=== PATIENT | female | born 1950 | race Caucasian/White ===

== ENCOUNTER 2017-08-03 05:51 | Inpatient (IN) | payer MEDICARE ==
[~2017-08-03] VITALS: Ht 157.5 cm; Wt 50.8 kg
--- NOTE | 2017-08-03 06:06 | NUR ---
Report given to Genesis ACEVEDO
[2017-08-03] MEDS ORDERED: AMLO10TA2 PO (06:13)
[2017-08-03] MEDS ORDERED: BUTA1CAP47 PO (06:13)
[2017-08-03] MEDS ORDERED: METO50TA3 PO (06:13)
[2017-08-03] MEDS ORDERED: PANT40TA4 PO (06:13)
[2017-08-03] MEDS ORDERED: GABA600T2 PO (06:13)
[2017-08-03] MEDS ORDERED: ALBU18HF2 IH (06:13)
[2017-08-03] MEDS ORDERED: IBUP-1953 PO (06:13)
[2017-08-03] MEDS ORDERED: LOSA100T15 PO (06:13)
--- NOTE | 2017-08-03 06:15 | NUR ---
[place] [facility] [place]
--- NOTE | 2017-08-03 06:15 | NUR ---
Pt arrived from ER tearful, crying, labile mood stating " I just don't want to be here" Pt appears disheveled and unkept, arms have red dots and is itching on arms. Pt can not verbalize where she is and what had happened to her. Pt appears to have Vitiligo on the forearms. will endorse to the on coming nurse.
[2017-08-03] MEDS ORDERED: TEMAZEPAM 7.5 MG CAPSULE PO PRN (06:45)
[2017-08-03] MEDS ORDERED: MAGNESIUM HYDROXIDE 30 ML LIQUID UDC PO PRN (06:45)
[2017-08-03] MEDS ORDERED: MAG HYDROX/AL HYDROX/SIMETH 30 ML LIQUID UDC PO PRN (06:45)
[2017-08-03 07:30] VITALS: BP 136/79
--- NOTE | 2017-08-03 10:03 | NUR ---
receivrd patient asleep arousable to verbal and tactile stimulation " [id number] am i said she stated whats good about it patient asleep and arousable to tactile and verbal stimuli, pt refused to be interviewed at thkis time whats good about this morning affect continue to monitor 4 dts or any other psychptic features '
--- NOTE | 2017-08-03 10:13 | NUR ---
will attempt again
[2017-08-03] MEDS: LORAZEPAM 1 MG TABLET PO PRN (11:27)
--- NOTE | 2017-08-03 11:45 | NUR ---
ADMISSION NOTE RECEIVED PATIIENT FROM NOC SHIFT WHOM SAID PT JUST ADMITTED , PATIENT A/O TIMES TWO REFUSING TOO ANSWER QUESTIONS FOR ADMISSIOIN PROCESS. PATIENT ISOLATIVE IN ROOM SLEEPING OFF AND ON WITH NOMRESPIRATORY DISTRESS, NO SELF DISCLOUSURE TO THIS STAFF. PATIENT BEGAN CRYING UN STOPPABLE FOR WHAT EVER REASON WITH NO SELF DISCLOUSURE , ATIVAN 1MG GIVEN WITH LITTLE EFFECT C CONTINUE TO MONITOR FOR SAFETY
[2017-08-03] MEDS ORDERED: HALOPERIDOL LACTATE 5 MG/1 ML VIAL IM ONE (13:45)
[2017-08-03] MEDS ORDERED: LORAZEPAM 2 MG/1 ML VIAL IM ONE (14:00)
--- NOTE | 2017-08-03 14:11 | NUR ---
PATIENT HAS BEEN THROWING FOOD TRAY AND TURNING OVER DESK AT BED SIDE IN A RAGE OF UN EXOLAINED ANGER STATING SHE HATES THIS PLACE U CANT GET OUT SCRATCHING HER ARMS AND CURSING AT STAFF WILL CONTINUE TO MONITOR PATIENTS BEHAVIOR AFTER INJECTIONS.
[2017-08-03] MEDS ORDERED: ALBUTEROL SULFATE 8 GM HFA.AER.AD IH PRN (18:15)
[2017-08-03] MEDS: METOPROLOL TARTRATE 50 MG TABLET PO SCH (18:15)
[2017-08-03] MEDS ORDERED: ALBUTEROL SULFATE 2.5 MG/3 ML NEBU NEB PRN (20:00)
--- NOTE | 2017-08-03 20:00 | NUR ---
Pt observed resting with no distress, breathing equal WNL. Pt was offered night meds and Pt becomes irritable, guarded, withdrawn, and screams " NO! I don't want it!" Pt offered at a later time. Pt continues to refuse medication without reason. Pt denies SI at this time.
[2017-08-03 21:00] VITALS: BP 129/77
[2017-08-03] MEDS: TRAZODONE 50 MG TABLET PO SCH (21:00)
[2017-08-03] MEDS: risperiDONE 1 MG TABLET PO SCH (21:00)
[2017-08-04 07:30] VITALS: BP 153/83
[2017-08-04 07:42] LABS: BASOPHILS % (AUTO) 0.3 % (0.0-2.0); EOSINOPHILS # (AUTO) 0.2 K/uL (0.0-0.7); EOSINOPHILS % (AUTO) 3.5 % (0.0-7.0); HEMATOCRIT 39.6 % (31.2-41.9); HEMOGLOBIN 13.9 g/dL (10.9-14.3); LYMPHOCYTES # (AUTO) 1.3 K/uL (20.0-40.0); LYMPHOCYTES % (AUTO) 20.7 % (20.5-51.5); MEAN CORPUSCULAR HEMOGLOBIN 30.9 uug (24.7-32.8); MEAN CORPUSCULAR HGB CONC 35 g/dL (32.3-35.6); MONOCYTES # (AUTO) 0.4 K/uL (2.0-10.0); MONOCYTES % (AUTO) 6.6 % (0.0-11.0); NEUTROPHILS # (AUTO) 4.3 K/uL (1.8-8.9); NEUTROPHILS % (AUTO) 68.9 % (38.5-71.5); PLATELET COUNT (AUTO) 336 K/uL (179-408); RED BLOOD CELL COUNT(AUTO) 4.49 MIL/uL (3.63-4.92); WHITE BLOOD COUNT (AUTO) 6.2 K/uL (3.8-11.8)
[2017-08-04 07:56] LABS: THYROID STIMULATING HORMONE 5.401 mIU/mL (0.358-3.740)
[2017-08-04 08:13] LABS: BILIRUBIN,TOTAL 0.4 mg/dL (0.2-1.0); CREATININE 0.8 mg/dL (0.6-1.3); MAGNESIUM 2.2 mg/dL (1.8-2.4); PHOSPHOROUS 3.5 mg/dL (2.5-4.9); POTASSIUM 3.7 mmol/L (3.5-5.1); TOTAL PROTEIN, SERUM 7.9 g/dL (6.4-8.2)
[2017-08-04] MEDS: PANTOPRAZOLE SODIUM 40 MG TABLET.DR PO SCH (09:00)
[2017-08-04] MEDS ORDERED: PANTOPRAZOLE SODIUM 40 MG TABLET.DR PO SCH (09:00)
[2017-08-04] MEDS ORDERED: Medication Not On Formulary EA (Losartan Potassium 100 MG) PO SCH (09:00)
[2017-08-04] MEDS: ACETAMINOPHEN 325 MG TABLET PO PRN (09:01)
[2017-08-04] MEDS: AMLODIPINE 10 MG TABLET PO SCH (09:01)
[2017-08-04] MEDS: LOSARTAN POTASSIUM 50 MG TABLET PO SCH (09:02)
[2017-08-04] MEDS: risperiDONE 1 MG TABLET PO SCH ×2 (09:03→20:18)
[2017-08-04] MEDS: LORAZEPAM 1 MG TABLET PO PRN (09:03)
[2017-08-04] MEDS: SERTRALINE HCL 100 MG TABLET PO SCH (09:03)
[2017-08-04] MEDS: METOPROLOL TARTRATE 50 MG TABLET PO SCH ×2 (09:04→18:16)
--- NOTE | 2017-08-04 13:26 | NUR ---
Initial DC Plan: Patient is currently homeless and has requested assistance finding placement. SW will contact facilities and try to find patient placement. SW will follow up with MD and patient to discuss appropriate discharge plans. SW will form a safe and proper discharge plan.
[2017-08-04 15:00] VITALS: BP 128/75
--- NOTE | 2017-08-04 18:48 | NUR ---
PATIENTN WAS INCONTINENT OF LARGE SOT PASTY STOOL BROWN IN COLOR , LIKE DIARRHEA MESSED WHOLE BED UP ,PUT PT IN SHOWER AND COMPLETE BED CHANGE DONE, PT FELT BETTER AFTER THAT AND SLEEPING OFF AND ON AFTER SHOWER ATE LUNCH AND ATE MORE AT DINNER , BEHAVIOR LESS HOSTILE TODAY
[2017-08-04] MEDS: TRAZODONE 50 MG TABLET PO SCH (20:18)
[2017-08-04 21:55] VITALS: BP 140/78
[2017-08-05] MEDS: PANTOPRAZOLE SODIUM 40 MG TABLET.DR PO SCH (06:48)
[2017-08-05 07:30] VITALS: BP 147/58
[2017-08-05] MEDS: LOSARTAN POTASSIUM 50 MG TABLET PO SCH (09:31)
[2017-08-05] MEDS: risperiDONE 1 MG TABLET PO SCH ×2 (09:31→20:01)
[2017-08-05] MEDS: SERTRALINE HCL 100 MG TABLET PO SCH (09:31)
[2017-08-05] MEDS: METOPROLOL TARTRATE 50 MG TABLET PO SCH ×2 (09:32→16:40)
[2017-08-05] MEDS: AMLODIPINE 10 MG TABLET PO SCH (09:32)
[2017-08-05 17:06] VITALS: BP 130/63
[2017-08-05] MEDS ORDERED: SULFAMETH/TRIMETH 800/160 MG TABLET PO SCH (17:15)
[2017-08-05] MEDS: SULFAMETH/TRIMETH 800/160 MG TABLET PO SCH (17:40)
[2017-08-05] MEDS: TRAZODONE 50 MG TABLET PO SCH (20:01)
[2017-08-05 20:03] VITALS: BP 121/60
[2017-08-05] MEDS: ACETAMINOPHEN 325 MG TABLET PO PRN (21:30)
--- NOTE | 2017-08-05 21:32 | NUR ---
gps: patient c/o headache. tylenol 650 mg po given per patient requested.
--- NOTE | 2017-08-05 22:35 | NUR ---
GPS: PATIENT STATED I AM FEELING BETTER NOW. PRN EFFECTIVE FOR HEADACHE.
[2017-08-06] MEDS: SULFAMETH/TRIMETH 800/160 MG TABLET PO SCH ×2 (06:07→17:07)
[2017-08-06] MEDS: PANTOPRAZOLE SODIUM 40 MG TABLET.DR PO SCH (06:08)
--- NOTE | 2017-08-06 06:56 | NUR ---
GPS: REMAIN CALM AND COOPERATIVE WITH MEDICATION. REFUSED SHOWER THIS MORNING. SLEPT 8 HRS THROUGH THE MORNING.CONTINUE PLAN OF CARE.
[2017-08-06 07:30] VITALS: BP 136/77
[2017-08-06] MEDS: LOSARTAN POTASSIUM 50 MG TABLET PO SCH (09:13)
[2017-08-06] MEDS: SERTRALINE HCL 100 MG TABLET PO SCH (09:13)
[2017-08-06] MEDS: AMLODIPINE 10 MG TABLET PO SCH (09:13)
[2017-08-06] MEDS: risperiDONE 1 MG TABLET PO SCH ×2 (09:13→20:18)
[2017-08-06] MEDS: METOPROLOL TARTRATE 50 MG TABLET PO SCH ×2 (09:14→17:07)
[2017-08-06] MEDS: ACETAMINOPHEN 325 MG TABLET PO PRN ×2 (12:26→20:18)
[2017-08-06 15:46] VITALS: BP 111/63
[2017-08-06 20:14] VITALS: BP 121/66
[2017-08-06] MEDS: ATORVASTATIN 20 MG TABLET PO SCH (20:18)
[2017-08-06] MEDS: TRAZODONE 50 MG TABLET PO SCH (20:18)
[2017-08-07] MEDS: PANTOPRAZOLE SODIUM 40 MG TABLET.DR PO SCH (06:36)
[2017-08-07] MEDS: SULFAMETH/TRIMETH 800/160 MG TABLET PO SCH ×2 (06:36→17:26)
[2017-08-07] MEDS: ACETAMINOPHEN 325 MG TABLET PO PRN ×2 (06:45→21:58)
[2017-08-07 07:30] VITALS: BP 121/63
[2017-08-07] MEDS: LOSARTAN POTASSIUM 50 MG TABLET PO SCH (08:41)
[2017-08-07] MEDS: SERTRALINE HCL 100 MG TABLET PO SCH (08:41)
[2017-08-07] MEDS: METOPROLOL TARTRATE 50 MG TABLET PO SCH ×2 (08:41→16:57)
[2017-08-07] MEDS: risperiDONE 1 MG TABLET PO SCH ×2 (08:41→20:14)
[2017-08-07] MEDS: AMLODIPINE 10 MG TABLET PO SCH (08:42)
[2017-08-07] MEDS: NICOTINE 14 MG/24HR PATCH TD SCH (09:20)
[2017-08-07 15:33] VITALS: BP 138/71
[2017-08-07 18:02] LABS: *BILIRUBIN,URIN NEGATIVE (NEGATIVE); *BLOOD, URINE NEGATIVE (NEGATIVE); *CLARITY,URINE CLOUDY (CLEAR); *COLOR,URINE LIGHT YELLOW (YELLOW); *KETONES,URINE NEGATIVE (NEGATIVE); *PROTEIN,URINE NEGATIVE (NEGATIVE); *UROBILINOGEN,URINE 0.2 E.U./dl (NORMAL); LEUKOCYTE ESTERASE ,URINE NEGATIVE (NEGATIVE); NITRITE, URINE POSITIVE (NEGATIVE); UGLUCOSE NEGATIVE (NEGATIVE)
[2017-08-07 18:10] LABS: BACTERIA,URINE MANY /HPF (NONE SEEN); RBC,URINE 0-3 /HPF (0-3); SQUAMOUS EPITHELIAL CELL,UR FEW /HPF (NONE SEEN); WBC,URINE 0-3 /HPF (0-3)
[2017-08-07 18:11] LABS: URINE AMORPHOUS PHOSPHATES MODERATE /HPF
[2017-08-07 20:11] VITALS: BP 129/65
[2017-08-07] MEDS: TRAZODONE 50 MG TABLET PO SCH (20:14)
[2017-08-07] MEDS: ATORVASTATIN 20 MG TABLET PO SCH (20:14)
--- NOTE | 2017-08-07 20:46 | NUR ---
PATIENT RECEIVED IN BED AWAKE. PATIENT DENIES PAIN AT THIS TIME, WILL CONTINUE TO MONITOR. PATIENT COMPLAIN WITH MEDICATION. PATIENT DENIES SI, WILL CONTINUE TO MONITOR ANY CHANGES OF BEHAVIOR AND REDIRECT NEEDED. BED IN LOWEST POSITION, BED LOCKED. NO AGGRESSIVE OR COMBATIVE BEHAVIOR NOTED, WILL CONTINUE TO MONITOR.
[2017-08-08] MEDS: PANTOPRAZOLE SODIUM 40 MG TABLET.DR PO SCH (06:32)
[2017-08-08 07:30] VITALS: BP 110/52
[2017-08-08 07:43] LABS: BASOPHILS % (AUTO) 0.2 % (0.0-2.0); EOSINOPHILS # (AUTO) 0.2 K/uL (0.0-0.7); EOSINOPHILS % (AUTO) 2.2 % (0.0-7.0); HEMATOCRIT 40.5 % (31.2-41.9); HEMOGLOBIN 14.2 g/dL (10.9-14.3); LYMPHOCYTES # (AUTO) 1.8 K/uL (20.0-40.0); LYMPHOCYTES % (AUTO) 18.8 % (20.5-51.5); MEAN CORPUSCULAR HEMOGLOBIN 30.8 uug (24.7-32.8); MEAN CORPUSCULAR HGB CONC 35 g/dL (32.3-35.6); MEAN CORPUSCULAR VOLUME 87.7 fL (75.5-95.3); MONOCYTES # (AUTO) 0.8 K/uL (2.0-10.0); MONOCYTES % (AUTO) 7.9 % (0.0-11.0); NEUTROPHILS # (AUTO) 6.7 K/uL (1.8-8.9); NEUTROPHILS % (AUTO) 70.9 % (38.5-71.5); PLATELET COUNT (AUTO) 304 K/uL (179-408); RED BLOOD CELL COUNT(AUTO) 4.62 MIL/uL (3.63-4.92); WHITE BLOOD COUNT (AUTO) 9.5 K/uL (3.8-11.8)
[2017-08-08 08:25] LABS: THYROID STIMULATING HORMONE 3.331 mIU/mL (0.358-3.740)
[2017-08-08 08:30] LABS: BILIRUBIN,TOTAL 0.2 mg/dL (0.2-1.0); CREATININE 1.1 mg/dL (0.6-1.3); PHOSPHOROUS 3.2 mg/dL (2.5-4.9); POTASSIUM 4.5 mmol/L (3.5-5.1); TOTAL PROTEIN, SERUM 7.4 g/dL (6.4-8.2)
[2017-08-08] MEDS: NICOTINE 14 MG/24HR PATCH TD SCH (08:45)
[2017-08-08] MEDS: risperiDONE 1 MG TABLET PO SCH ×2 (08:46→21:12)
[2017-08-08] MEDS: AMLODIPINE 10 MG TABLET PO SCH (08:46)
[2017-08-08] MEDS: LOSARTAN POTASSIUM 50 MG TABLET PO SCH (08:46)
[2017-08-08] MEDS: METOPROLOL TARTRATE 50 MG TABLET PO SCH ×2 (08:47→16:24)
[2017-08-08] MEDS ORDERED: SERTRALINE HCL 100 MG TABLET PO SCH (09:00)
[2017-08-08] MEDS: CEPHALEXIN MONOHYDRATE 500 MG CAPSULE PO SCH ×3 (12:14→21:52)
[2017-08-08 15:21] VITALS: BP 113/59
[2017-08-08 20:47] VITALS: BP 116/60
[2017-08-08] MEDS: TRAZODONE 100 MG TABLET PO SCH (21:11)
[2017-08-08] MEDS: ATORVASTATIN 20 MG TABLET PO SCH (21:12)
[2017-08-08] MEDS: ACETAMINOPHEN 325 MG TABLET PO PRN (21:52)
[2017-08-09] MEDS: CEPHALEXIN MONOHYDRATE 500 MG CAPSULE PO SCH ×3 (06:28→21:58)
[2017-08-09] MEDS: PANTOPRAZOLE SODIUM 40 MG TABLET.DR PO SCH (06:28)
[2017-08-09 07:30] VITALS: BP 105/49
[2017-08-09] MEDS: AMLODIPINE 10 MG TABLET PO SCH (09:00)
[2017-08-09] MEDS: METOPROLOL TARTRATE 50 MG TABLET PO SCH ×2 (09:00→17:00)
[2017-08-09] MEDS: LOSARTAN POTASSIUM 50 MG TABLET PO SCH (09:00)
[2017-08-09] MEDS: risperiDONE 1 MG TABLET PO SCH ×2 (09:14→20:02)
[2017-08-09] MEDS: NICOTINE 14 MG/24HR PATCH TD SCH (09:15)
[2017-08-09] MEDS: SERTRALINE HCL 100 MG TABLET PO SCH (09:15)
[2017-08-09 16:00] VITALS: BP 109/69
[2017-08-09] MEDS: HYDROCORTISONE 0.5% CREAM 28.35 GM TUBE TOP SCH (17:55)
[2017-08-09] MEDS: ATORVASTATIN 20 MG TABLET PO SCH (20:02)
[2017-08-09] MEDS: TRAZODONE 100 MG TABLET PO SCH (20:02)
[2017-08-09] MEDS: diphenhydrAMINE 25 MG CAP PO PRN (20:02)
[2017-08-09 20:40] VITALS: BP 130/64
[2017-08-10] MEDS: CEPHALEXIN MONOHYDRATE 500 MG CAPSULE PO SCH ×2 (06:19→13:08)
[2017-08-10] MEDS: PANTOPRAZOLE SODIUM 40 MG TABLET.DR PO SCH (06:19)
[2017-08-10 07:30] VITALS: BP 128/64
[2017-08-10] MEDS: SERTRALINE HCL 100 MG TABLET PO SCH (10:08)
[2017-08-10] MEDS: LOSARTAN POTASSIUM 50 MG TABLET PO SCH (10:09)
[2017-08-10] MEDS: AMLODIPINE 10 MG TABLET PO SCH (10:09)
[2017-08-10] MEDS: risperiDONE 1 MG TABLET PO SCH ×2 (10:09→20:22)
[2017-08-10] MEDS: NICOTINE 14 MG/24HR PATCH TD SCH (10:10)
[2017-08-10] MEDS: METOPROLOL TARTRATE 50 MG TABLET PO SCH ×2 (10:10→18:20)
[2017-08-10] MEDS: HYDROCORTISONE 0.5% CREAM 28.35 GM TUBE TOP SCH ×2 (11:15→18:20)
[2017-08-10] MEDS ORDERED: MEROPENEM 0.5 G in IV NORMAL SALINE 50 ML IV SCH (14:30)
[2017-08-10 15:00] VITALS: BP 102/57
[2017-08-10 15:35] LABS: BASOPHILS % (AUTO) 0.6 % (0.0-2.0); EOSINOPHILS # (AUTO) 0.2 K/uL (0.0-0.7); EOSINOPHILS % (AUTO) 2.1 % (0.0-7.0); HEMATOCRIT 43.5 % (37-47); HEMOGLOBIN 14.4 G/DL (12.0-16.0); LYMPHOCYTES # (AUTO) 1.9 K/UL (0.8-4.8); LYMPHOCYTES % (AUTO) 23.4 % (20.5-51.5); MEAN CORPUSCULAR HEMOGLOBIN 29.2 UUG (27.0-31.0); MEAN CORPUSCULAR HGB CONC 33 g/dL (32.0-37.0); MEAN CORPUSCULAR VOLUME 88.4 FL (81.0-99.0); MONOCYTES # (AUTO) 0.5 K/UL (0.1-1.30); MONOCYTES % (AUTO) 6.4 % (0.0-11.0); NEUTROPHILS # (AUTO) 5.7 K/UL (1.8-8.9); NEUTROPHILS % (AUTO) 67.5 % (38.5-71.5); PLATELET COUNT (AUTO) 343 K/UL (150-450); RED BLOOD CELL COUNT(AUTO) 4.93 MIL/UL (4.2-5.4); WHITE BLOOD COUNT (AUTO) 8.3 K/UL (4.0-11.2)
[2017-08-10 15:48] LABS: BILIRUBIN,TOTAL 0.3 mg/dL (0.2-1.0); MAGNESIUM 1.8 mg/dL (1.8-2.4); PHOSPHOROUS 4.8 mg/dL (2.5-4.9); POTASSIUM 4.5 mmol/L (3.5-5.1); TOTAL PROTEIN, SERUM 7.7 g/dL (6.4-8.2)
--- NOTE | 2017-08-10 17:00 | NUR ---
recieved patient from mhu awake alert cooperate well vs stable no sob or pain CALL LIGHT IN REACH AND SITTER 1:1 AT BEDSIDE FOR SAFETY NO SUICIDAL THOUGHT AT THIS TIME
--- NOTE | 2017-08-10 17:30 | NUR ---
EAT WELL PO FLD ALEYDA MOD AMT ,WILL START IV LINE FOR ANTIBIOTICS AFTER EAT DINNER
[2017-08-10 18:00] VITALS: BP 135/63
[2017-08-10] MEDS: MEROPENEM 500 MG in IV NORMAL SALINE 50 ML IV SCH (18:20)
[2017-08-10] MEDS: diphenhydrAMINE 25 MG CAP PO PRN (19:47)
[2017-08-10 20:00] VITALS: BP 124/64
--- NOTE | 2017-08-10 20:00 | NUR ---
RECEIVED PATIENT AWAKE IN BED. PATIENT IS A/O X4. SITTER AT BEDSIDE FOR SAFETY. VS WNL. ON ISOLATION PRECAUTIONS. DENIES PAIN OR DISCOMFORT. H/L INTACT AND PATENT, NOTED TO LEFT FA #22 GAUGE. NO RESP. DISTRESS NOTED. CALL LIGHT IN REACH. ALL NEEDS ATTENDED. WILL CONTINUE TO MONITOR.
[2017-08-10] MEDS: ATORVASTATIN 20 MG TABLET PO SCH (20:22)
[2017-08-10] MEDS: TRAZODONE 100 MG TABLET PO SCH (20:22)
[2017-08-10] MEDS: ACETAMINOPHEN 325 MG TABLET PO PRN (22:33)
[2017-08-11] MEDS: MEROPENEM 500 MG in IV NORMAL SALINE 50 ML IV SCH ×2 (02:58→16:10)
--- NOTE | 2017-08-11 06:11 | NUR ---
PATIENT ASLEEP IN BED. SITTER AT BEDSIDE. SLEPT WELL THROUGHOUT THE NIGHT. CALL LIGHT IN REACH. ALL NEEDS ATTENDED. WILL CONTINUE TO MONITOR.
[2017-08-11] MEDS: PANTOPRAZOLE SODIUM 40 MG TABLET.DR PO SCH (06:17)
--- NOTE | 2017-08-11 06:50 | NUR ---
PATIENT SLEPT 7 HOURS AND 30 MINUTES. SITTER AT BEDSIDE.
[2017-08-11 07:50] VITALS: BP 112/65
[2017-08-11] MEDS: risperiDONE 1 MG TABLET PO SCH ×2 (08:04→20:36)
[2017-08-11] MEDS: SERTRALINE HCL 100 MG TABLET PO SCH (08:04)
[2017-08-11] MEDS: METOPROLOL TARTRATE 50 MG TABLET PO SCH ×2 (08:05→17:25)
[2017-08-11] MEDS: AMLODIPINE 10 MG TABLET PO SCH (08:05)
[2017-08-11] MEDS: HYDROCORTISONE 0.5% CREAM 28.35 GM TUBE TOP SCH ×2 (08:06→17:25)
[2017-08-11] MEDS: LOSARTAN POTASSIUM 50 MG TABLET PO SCH (08:06)
[2017-08-11] MEDS: NICOTINE 14 MG/24HR PATCH TD SCH (08:10)
--- NOTE | 2017-08-11 08:30 | NUR ---
AWAKE ALERT COOPERATE AT THIS TIME NO SOB OR PAIN EAT BREAKFAST MOD AMT NO S/S OF SUICIDAL SITTER 1:1 AT BEDSIDE FOR SAFETY AND CALL LIGHT WITHIN REACH
[2017-08-11 11:30] VITALS: BP 122/65
--- NOTE | 2017-08-11 13:00 | NUR ---
dr turcios seen patient this afternoon no new order eat lunch mod amt resting quiet
[2017-08-11 15:24] VITALS: BP 111/51
--- NOTE | 2017-08-11 18:00 | NUR ---
SAME CONDITION NO ACUTE DISTRESS AND COOPERATE /CALM SAFETY MEASURE PROVIDED SITTER 1;1 AT BEDSIDE AND CALL BANKS IN REACH
[2017-08-11] MEDS: diphenhydrAMINE 50 MG CAPSULE PO PRN (18:50)
--- NOTE | 2017-08-11 19:40 | NUR ---
patient alert and oriented, anxious at times, requesting tylenol for pain onher knees. tolerated po meds well. no further complaints presented during shift. sitter at the bedside. will continue to monitor.
[2017-08-11 20:00] VITALS: BP 104/55
[2017-08-11] MEDS: ATORVASTATIN 20 MG TABLET PO SCH (20:36)
[2017-08-11] MEDS: TRAZODONE 100 MG TABLET PO SCH (20:36)
[2017-08-11] MEDS: ACETAMINOPHEN 325 MG TABLET PO PRN (20:37)
[2017-08-12] MEDS: MEROPENEM 500 MG in IV NORMAL SALINE 50 ML IV SCH ×2 (03:09→14:39)
[2017-08-12] MEDS: PANTOPRAZOLE SODIUM 40 MG TABLET.DR PO SCH (06:01)
--- NOTE | 2017-08-12 06:28 | NUR ---
quiet night. aaox4 ambulates to the BR x2 Voiding without any difficulty. slept for 7hrs and 15 minutes. no suicidal ideation nor any behavioral signs noted. pleasant and calm. took meds without any difficulty. antibiotic given without any side effects. denies any pain nor any discomfort. will monitor patient. attended to needs. contact isolation maintained., for ESBL in urine. VSS.
[2017-08-12 07:30] VITALS: BP 114/60
[2017-08-12] MEDS: SERTRALINE HCL 100 MG TABLET PO SCH (08:34)
[2017-08-12] MEDS: NICOTINE 14 MG/24HR PATCH TD SCH (08:34)
[2017-08-12] MEDS: AMLODIPINE 10 MG TABLET PO SCH (08:35)
[2017-08-12] MEDS: HYDROCORTISONE 0.5% CREAM 28.35 GM TUBE TOP SCH (08:36)
[2017-08-12] MEDS: LOSARTAN POTASSIUM 50 MG TABLET PO SCH (08:40)
[2017-08-12] MEDS: METOPROLOL TARTRATE 50 MG TABLET PO SCH (08:40)
[2017-08-12] MEDS: risperiDONE 1 MG TABLET PO SCH (08:41)
[2017-08-12] MEDS ORDERED: ACIDOPHILUS/BULGARICUS CHEW TAB PO SCH (09:00)
[2017-08-12 11:52] VITALS: BP 123/58
--- NOTE | 2017-08-12 12:32 | NUR ---
NEW ORDERS NOTED TO TRANSFER PATIENT TO MEDICAL SURGICAL STATUS AND NOTED
[2017-08-12] MEDS: diphenhydrAMINE 50 MG CAPSULE PO PRN (13:46)
--- NOTE | 2017-08-12 14:11 | NUR ---
PATIENTS VALUABLES ARE IN THE SAFE DOWNSTAIRS IN MENTAL HEALTH PATIENT AWARE BUT REFUSED TO SIGN THE INVENTORY PAPER HER VALUABLES WILL BE KEPT SAFE FOR HER UNTIL WHEN SHE IS DISCHARGED.
--- NOTE | 2017-08-12 15:15 | NUR ---
PATIENT DISCHARGED WILL BE CONVERTED TO MEDICAL SURGICAL STATUS PER THE PSYCH TEAM.
[2017-08-12] MEDS ORDERED: SERT25TA PO (17:09)
[2017-08-12] MEDS ORDERED: DIPH50CA37 PO (17:09)
[2017-08-12] MEDS ORDERED: RISP1TAB7 PO (17:09)
[2017-08-12] MEDS ORDERED: ALBU2.5V38 NEB (17:09)
[2017-08-12] MEDS ORDERED: ATOR20TA PO (17:09)
[2017-08-12] MEDS ORDERED: NICO1PAT25 TD (17:09)
[2017-08-12] MEDS ORDERED: TRAZ-147 PO (17:09)
[2017-08-12] MEDS ORDERED: HYDR453.3 TP (17:09)
[2017-08-12] MEDS ORDERED: TEMA15CA PO (17:09)
[2017-08-12] MEDS ORDERED: LORA1TAB PO (17:09)
[2017-08-12] MEDS ORDERED: LACT100C2 PO (17:09)
[2017-08-12] MEDS ORDERED: MAG-55 PO (17:09)
[2017-08-12] MEDS ORDERED: ACET-2154 PO (17:09)
[2017-08-12] MEDS ORDERED: MERO500V IV (17:09)
== END 2017-08-12 15:15 | disposition short-term general hospital (02) | DRG 885 ==
LOC: ER 05:57 → GPS 06:06 → GPSOV 08-10 17:00
PROVIDERS: ADMIT Psychiatry & Neurology Psychiatry; ATTEND Internal Medicine
DX: F33.3 Major depressive disorder, recurrent, severe with psychotic symptoms (principal); J44.9 Chronic obstructive pulmonary disease, unspecified; G62.9 Polyneuropathy, unspecified; N39.0 Urinary tract infection, site not specified; F17.218 Nicotine dependence, cigarettes, with other nicotine-induced disorders; L80 Vitiligo; Z59.0 Homelessness; Z91.5 Personal history of self-harm; Z86.011 Personal history of benign neoplasm of the brain; Z90.49 Acquired absence of other specified parts of digestive tract; Z82.79 Family history of other congenital malformations, deformations and chromosomal abnormalities; Z79.899 Other long term (current) drug therapy; K21.9 Gastro-esophageal reflux disease without esophagitis; B96.20 Unspecified Escherichia coli [E. coli] as the cause of diseases classified elsewhere; Z16.12 Extended spectrum beta lactamase (ESBL) resistance; E78.5 Hyperlipidemia, unspecified; M06.9 Rheumatoid arthritis, unspecified; H20.10 Chronic iridocyclitis, unspecified eye; I10 Essential (primary) hypertension; M95.2 Other acquired deformity of head; R94.02 Abnormal brain scan; F15.10 Other stimulant abuse, uncomplicated
CPT/HCPCS: 36415; 70450; 82306; 83735; 84100; 84443; 85025; 87077; 87086; A4663; J1630; J2060; J2185; J3490; Q0163

== ENCOUNTER 2017-08-12 15:32 | Inpatient (IN) | payer MEDICARE ==
[~2017-08-12] VITALS: Ht 157.5 cm; Wt 50.8 kg
[~2017-08-12 15:32] MED LIST: ALBU18HF2 IH; AMLO10TA2 PO; BUTA1CAP47 PO; IBUP-1953 PO; LOSA100T15 PO; METO50TA3 PO; PANT40TA4 PO
[2017-08-12 15:49] VITALS: BP 106/62
--- NOTE | 2017-08-12 16:25 | NUR ---
PATIENT CONVERTED FROM MENTAL HEALTH STATUS TO MEDICAL SURGICAL DUE TO THE FACT THAT SHE IS NOT MEDICALLY CLEARED AND STILL REQUIRES INTRAVENOUS ANTIBIOTICS FOR HER ESBL IN THE URINE.PATIENT AWARE REMAINED IN THE SAME BED WITH A DIFFERENT ACCOUNT NUMBER.WILL REMAIN ON IV ANTIBIOTICS ORDERED AND STILL ON 5250 HOLD WITH A SITTER AND REMAIN ON CONTACT ISOLATION AT THIS TIME.PATIENTS PERSONAL BELONGINGS ARE AT THE MENTAL HEALTH UNIT SAFE .
[2017-08-12] MEDS ORDERED: RISP1TAB7 PO (17:09)
[2017-08-12] MEDS ORDERED: SERT25TA PO (17:09)
[2017-08-12] MEDS ORDERED: ALBU2.5V38 NEB (17:09)
[2017-08-12] MEDS ORDERED: HYDR453.3 TP (17:09)
[2017-08-12] MEDS ORDERED: LACT100C2 PO (17:09)
[2017-08-12] MEDS ORDERED: ACET-2154 PO (17:09)
[2017-08-12] MEDS ORDERED: ATOR20TA PO (17:09)
[2017-08-12] MEDS ORDERED: MAG-55 PO (17:09)
[2017-08-12] MEDS ORDERED: NICO1PAT25 TD (17:09)
[2017-08-12] MEDS ORDERED: MERO500V IV (17:09)
[2017-08-12] MEDS ORDERED: DIPH50CA37 PO (17:09)
[2017-08-12] MEDS ORDERED: LORA1TAB PO (17:09)
[2017-08-12] MEDS ORDERED: TRAZ-147 PO (17:09)
[2017-08-12] MEDS ORDERED: TEMA15CA PO (17:09)
[2017-08-12 20:00] VITALS: BP 123/57
[2017-08-12] MEDS ORDERED: LORAZEPAM 1 MG TABLET PO SCH (22:00)
[2017-08-12] MEDS ORDERED: TEMAZEPAM 15 MG CAPSULE PO SCH (22:00)
[2017-08-12] MEDS: risperiDONE 1 MG TABLET ONE ×2 (22:40→23:06)
[2017-08-12] MEDS ORDERED: TRAZODONE 100 MG TABLET ONE (22:46)
[2017-08-12] MEDS ORDERED: ATORVASTATIN 20 MG TABLET ONE (22:47)
[2017-08-12] MEDS ORDERED: LORAZEPAM 1 MG TABLET ONE (22:49)
[2017-08-13] MEDS ORDERED: ACETAMINOPHEN 325 MG TABLET PO SCH
[2017-08-13] MEDS ORDERED: ACETAMINOPHEN 325 MG TABLET PO PRN
[2017-08-13] MEDS: diphenhydrAMINE 50 MG CAPSULE PO PRN ×2 (00:06→17:07)
[2017-08-13] MEDS ORDERED: ACETAMINOPHEN 325 MG TABLET ONE (00:18)
[2017-08-13] MEDS ORDERED: diphenhydrAMINE 50 MG CAPSULE ONE (00:19)
[2017-08-13] MEDS: MEROPENEM 500 MG in IV NORMAL SALINE 50 ML IV SCH ×2 (03:01→15:48)
[2017-08-13 04:28] VITALS: BP 121/64
[2017-08-13 06:44] LABS: BASOPHILS % (AUTO) 0.6 % (0.0-2.0); EOSINOPHILS # (AUTO) 0.4 K/uL (0.0-0.7); EOSINOPHILS % (AUTO) 4.4 % (0.0-7.0); HEMATOCRIT 40.8 % (37-47); HEMOGLOBIN 13.8 G/DL (12.0-16.0); LYMPHOCYTES # (AUTO) 2.1 K/UL (0.8-4.8); LYMPHOCYTES % (AUTO) 25.9 % (20.5-51.5); MEAN CORPUSCULAR HEMOGLOBIN 29.6 UUG (27.0-31.0); MEAN CORPUSCULAR HGB CONC 34 g/dL (32.0-37.0); MEAN CORPUSCULAR VOLUME 87.5 FL (81.0-99.0); MONOCYTES # (AUTO) 0.6 K/UL (0.1-1.30); MONOCYTES % (AUTO) 7.8 % (0.0-11.0); NEUTROPHILS # (AUTO) 4.9 K/UL (1.8-8.9); NEUTROPHILS % (AUTO) 61.3 % (38.5-71.5); PLATELET COUNT (AUTO) 298 K/UL (150-450); RED BLOOD CELL COUNT(AUTO) 4.66 MIL/UL (4.2-5.4)
[2017-08-13 06:49] LABS: BILIRUBIN,TOTAL 0.3 mg/dL (0.2-1.0); MAGNESIUM 2.1 mg/dL (1.8-2.4); PHOSPHOROUS 3.7 mg/dL (2.5-4.9); POTASSIUM 4.4 mmol/L (3.5-5.1); TOTAL PROTEIN, SERUM 7.3 g/dL (6.4-8.2)
--- NOTE | 2017-08-13 06:49 | NUR ---
PATIENT INTERMITTENTLY SLEEPING INTERMITTENTLY. PATIENT SLEPT ABOUT 5 HRS. CONTINUING ON ATB ORDERED. OBSERVING CONTACT ISOLATION FOR ESBL OF URINE. WILL CONTINUE TO MONITOR
[2017-08-13] MEDS ORDERED: LORAZEPAM 1 MG TABLET PO PRN (07:39)
[2017-08-13] MEDS: PANTOPRAZOLE SODIUM 40 MG TABLET.DR PO SCH (07:53)
[2017-08-13] MEDS: METOPROLOL TARTRATE 50 MG TABLET PO SCH ×2 (08:44→17:08)
[2017-08-13] MEDS ORDERED: Medication Not On Formulary EA (Sertraline Hcl (Zoloft) 100 MG) PO SCH (09:45)
[2017-08-13] MEDS ORDERED: Medication Not On Formulary EA (Mag Hydrox/Al Hydrox/Simeth (Maalox Advanced Max-Str Sus PO SCH (09:45)
[2017-08-13] MEDS ORDERED: MAG HYDROX/AL HYDROX/SIMETH 30 ML LIQUID UDC PO PRN (10:00)
[2017-08-13] MEDS: NICOTINE 14 MG/24HR PATCH TD SCH (10:47)
[2017-08-13] MEDS: HYDROCORTISONE 1% CREAM 30 GM TUBE TP SCH ×2 (10:49→20:36)
[2017-08-13 11:49] VITALS: BP 140/53
--- NOTE | 2017-08-13 12:10 | NUR ---
DR DENNEY HERE TO SEE PATIENT AND AWARE THAT THE PATIENT HAS BEEN REFUSING HER RESPIDAL AND HE STATED THAT THE PATIENT TOLD HIM AND HE TOLD THE PATIEN THAT SHE HAS TO TAKE HER RESPIDAL ORDERED
[2017-08-13] MEDS ORDERED: PERMETHRIN 5% CREAM 60 GM TUBE TP ONE (13:15)
--- NOTE | 2017-08-13 14:00 | NUR ---
INFORMED ИРИНА WAITE PATIENT STATED THAT SHE WANTS REGULAR DIET AND THAT SHE IS NOT DIABETIC ALSO THAT SHE HAS A HX OF SHINGLES AND STATED THAT SHE FEELS ONE STARTING ON HER RIGHT LOWER BACK CHECK HER LOWER BACK AND SEEN SOME REDNESS AND SCRATCH PALOMINO STATED THAT IT NORMALLY START LIKE THIS AND THEN SPREADS. LYNN STATED WILL HAVE THE INFECTIOUS DISEASE DOCTOR TO SEE PATIENT LATER TODAY.
--- NOTE | 2017-08-13 15:53 | NUR ---
PATIENT REFUSED ELIMITE CREAM ORDERED STATED THAT SHE DOES NOT HAVE SCABIES .PATIENTS RIGHTS TO REFUSE RESPECTED
[2017-08-13 16:01] VITALS: BP 122/62
--- NOTE | 2017-08-13 18:00 | NUR ---
PATIENT REMAIN ON IV ANTIBIOTICS ORDERED WITH NO ADVERSE OR ALLERGIC REACTIONS AT THIS TIME.REMAIN ON CONTACT ISOLATION AND PRECAUTION ON ONE ON ONE SITTER FOR SAFETY MADE COMFORTABLE.PATIENT WAS MEDICATED WITH BENADRYL ORDERED FOR ITCHING WILL CONTINUE TO OBSERVE.
[2017-08-13 19:32] VITALS: BP 103/67
--- NOTE | 2017-08-13 20:00 | NUR ---
Pt received laying in bed, no acute distress noted. AOx3. Pt requesting zovirax for herpes outbreak, will notify PLANT INSPECTOR. otherwise pt denies SI/HI at this time. Will continue to monitor for safety.
[2017-08-13] MEDS: TRAZODONE 100 MG TABLET PO SCH (20:33)
[2017-08-13] MEDS: LACTOBACILLUS RHAMNOSUS GG 1 EACH CAPSULE PO SCH (20:33)
[2017-08-13] MEDS: ATORVASTATIN 20 MG TABLET PO SCH (20:33)
[2017-08-13] MEDS: risperiDONE 1 MG TABLET PO SCH (20:33)
[2017-08-13] MEDS ORDERED: Medication Not On Formulary EA (Lactobacillus Acidophilus (Acidophilus) 1 TAB) PO SCH (21:00)
[2017-08-13] MEDS: ACYCLOVIR 400 MG TABLET PO SCH (22:34)
[2017-08-13] MEDS ORDERED: ACYCLOVIR 400 MG TABLET ONE (22:41)
[2017-08-14] MEDS ORDERED: MEROPENEM 500 MG VIAL IV SCH (03:00)
[2017-08-14] MEDS: MEROPENEM 500 MG in IV NORMAL SALINE 50 ML IV SCH ×2 (04:33→14:33)
[2017-08-14 05:39] VITALS: BP 110/64
[2017-08-14] MEDS: ACYCLOVIR 400 MG TABLET PO SCH ×5 (06:06→20:18)
[2017-08-14] MEDS: PANTOPRAZOLE SODIUM 40 MG TABLET.DR PO SCH (06:06)
[2017-08-14] MEDS ORDERED: ACYCLOVIR 400 MG TABLET ONE (06:09)
--- NOTE | 2017-08-14 07:30 | NUR ---
ALERT ORIENTED AND VERBALLY RESPONSIVE DENIES PAIN OR DISCOMFORTS AT THIS TIME.REMAIN ON CONTACT ISOLATION AND PRECAUTION ALSO ON ONE ON ONE SITTER FOR SAFETY DENIES ANY SUICIDAL IDEATION MADE COMFORTABLE.
[2017-08-14 07:43] VITALS: BP 128/63
[2017-08-14 08:13] VITALS: BP 142/72
[2017-08-14] MEDS: SERTRALINE HCL 100 MG TABLET PO SCH (08:39)
[2017-08-14] MEDS: METOPROLOL TARTRATE 50 MG TABLET PO SCH ×2 (08:40→17:16)
[2017-08-14] MEDS: LACTOBACILLUS RHAMNOSUS GG 1 EACH CAPSULE PO SCH ×2 (08:40→20:18)
[2017-08-14] MEDS: HYDROCORTISONE 1% CREAM 30 GM TUBE TP SCH ×2 (08:43→20:20)
[2017-08-14] MEDS: NICOTINE 14 MG/24HR PATCH TD SCH (08:43)
[2017-08-14] MEDS: risperiDONE 1 MG TABLET PO SCH ×2 (08:44→20:20)
--- NOTE | 2017-08-14 11:17 | NUR ---
DR COLVIN HERE TO SEE PATIENT SPOKE TO HER ABOUT TAKING RESPIDAL AND SHE REFUSED MD STATED TO STOP THE HOLD AT THIS TIME ITS NOW UP TO DR ALVARADO TO DISCHARGE THE PATIENT WHENEVER HE WANTS TO STATE TESTED NURSING ASSISTANT NOTIFIED.
[2017-08-14 11:34] VITALS: BP 114/55
--- NOTE | 2017-08-14 14:22 | NUR ---
DISCHARGE PLANNING TODAY BUT NO DISCHARGE ORDERS YET BUT PATIENT STATED THAT SHE WANTS ALL HER BELONGINGS INCLUDING HER VALUABLES FROM THE SAFE PATIENT WAS ENCOURAGED TO WAIT TILL SHE IS DISCHARGED STATED THAT SHE WANTS THEM NOW SO HER BELONGINGS GIVEN TO HER AND SHE SIGNED FOR THEM.
--- NOTE | 2017-08-14 14:34 | NUR ---
PATIENT STATED THAT SHE HAS HAD 5 DAYS OF ANTIBIOTICS AND DOES NOT WANT ANYMORE.PATIENTS RIGHT TO REFUSE RESPECTED.AWAITING FOR DISCHARGE ORDER AND PAPERWORK FROM DR ALVARADO.
--- NOTE | 2017-08-14 15:00 | NUR ---
PATIENT SEEN IN THE HALLWAY LEAVING WITH ALL HER PERSONAL BELONGINGS AND SHE WAS ASKED TO COME BACK TO HER ROOM BECAUSE HER DISCHARGE IS NOT FINALISED YET BY DR ALVARADO AND HER HEPLOCK WILL NEED TO BE REMOVED BEFORE SHE COULD BE DISCHARGED SO SHE FOLLOWED ME BACK TO HER ROOM AND I REMOVED HER HEPLOCK WHILE AWAITING FOR DISCHARGE ORDERS.
--- NOTE | 2017-08-14 15:20 | NUR ---
RECEIVED A CALL FROM [facility] RE PATIENT IS POSITIVE WITH MRSA NARES NOTIFIED DR ALVARADO WITH NO NEW ORDERS AT THIS TIME.
[2017-08-14 15:42] VITALS: BP 142/58
--- NOTE | 2017-08-14 16:15 | NUR ---
This clinician was asked to see pt. who wanted transportation to [facility] where she states her car is parked. She is guarded and lacks insight into her problems. Patient states that she is not accepting placement at [facility] as she feels " there is shady business." She says she would rather live in her car than go to a SNF. She also said " I need to to the police to report a crime." She would not elaborate. Patient stated " I rather need drug rehab. " When asked which drug she abuses she stated " never mind." Patient admits to " feeling weak." She denies any support system. She is refusing Risperdol on the floor. Patient's [address] Muñoz since she is unable to formulate a plan for her care and is refusing SNF placement currently. She feels that her need for PT is " fabrication." Case was discussed with Dr Muñoz and Dr Moore. Pt. is unlikely to improve unless she is treated with an anti-psychotic. Since she is refusing Risperdol, she most likely needs to be Riesed. This was discussed with Dr Muñoz.
--- NOTE | 2017-08-14 17:30 | NUR ---
CALLED AND SPOKE WITH DR ALVARADO RE PATIENTS HEPLOCK WAS REMOVED EARLIER DUE TO THE FACT THAT PATIENT WAS BEING PREPPED FOR DISCHARGE AND HAD REFUSED HER 1530 IV ANTIBIOTICS AND SHE DOES NOT WANT THE HEPLOCK REINSERTED STATED THAT SHE HAS HAD ENOUGH DOSES OF ANTIBIOTICS AND IN HER OWN WORDS NO BODY CAN FORCE HER TO DO WHAT SHE DOES NOT WANT TO DO.DR ALVARADO STATED THAT HE WILL FIGURE OUT THE NEXT PLAN OF CARE RE ANTIBIOTICS ETC.
[2017-08-14 20:15] VITALS: BP 126/79
[2017-08-14] MEDS: TRAZODONE 100 MG TABLET PO SCH (20:18)
[2017-08-14] MEDS: ATORVASTATIN 20 MG TABLET PO SCH (20:18)
--- NOTE | 2017-08-14 21:00 | NUR ---
PT RECEIVED LAYING IN BED, NO ACUTE DISTRESS NOTED. COMPLIANT WITH MEDICATIONS. REFUSED RISPERDAL PO DESPITE EDUCATION, WILL NOTIFY MD. REMAINS GUARDED AND ANXIOUS ABOUT PLACEMENT UPON D/C, COMFORT MEASURES PROVIDED. 1:1 SITTER AT ALL TIMES.
[2017-08-14] MEDS: diphenhydrAMINE 50 MG CAPSULE PO PRN (22:12)
[2017-08-15] MEDS: MUPIROCIN 2% OINT 22 GM TUBE NS SCH ×3 (00:59→20:37)
[2017-08-15] MEDS: MEROPENEM 500 MG in IV NORMAL SALINE 50 ML IV SCH (03:12)
--- NOTE | 2017-08-15 03:45 | NUR ---
PT REFUSED IV ANTIBIOTICS, STILL REFUSING REINSERTION OF IV DESPITE EDUCATION, STATES"I DON'T NEED IT ANYMORE". MD IS AWARE. PT IS AFEBRILE. NO ACUTE DISTRESS NOTED.
[2017-08-15] MEDS: ACYCLOVIR 400 MG TABLET PO SCH ×5 (06:12→20:38)
[2017-08-15] MEDS: PANTOPRAZOLE SODIUM 40 MG TABLET.DR PO SCH (06:12)
[2017-08-15 06:38] VITALS: BP 125/65
[2017-08-15 06:59] LABS: BILIRUBIN,TOTAL 0.2 mg/dL (0.2-1.0); CREATININE 0.9 mg/dL (0.6-1.3); MAGNESIUM 2.2 mg/dL (1.8-2.4); PHOSPHOROUS 3.3 mg/dL (2.5-4.9); POTASSIUM 4.4 mmol/L (3.5-5.1); TOTAL PROTEIN, SERUM 7.2 g/dL (6.4-8.2)
[2017-08-15 07:24] LABS: BASOPHILS % (AUTO) 0.6 % (0.0-2.0); EOSINOPHILS # (AUTO) 0.3 K/uL (0.0-0.7); EOSINOPHILS % (AUTO) 3.8 % (0.0-7.0); HEMATOCRIT 39.9 % (31.2-41.9); HEMOGLOBIN 13.7 g/dL (10.9-14.3); LYMPHOCYTES # (AUTO) 1.9 K/uL (20.0-40.0); LYMPHOCYTES % (AUTO) 23.1 % (20.5-51.5); MEAN CORPUSCULAR HGB CONC 35 g/dL (32.3-35.6); MONOCYTES # (AUTO) 0.7 K/uL (2.0-10.0); MONOCYTES % (AUTO) 9.2 % (0.0-11.0); NEUTROPHILS # (AUTO) 5.1 K/uL (1.8-8.9); NEUTROPHILS % (AUTO) 63.3 % (38.5-71.5); PLATELET COUNT (AUTO) 264 K/uL (179-408); RED BLOOD CELL COUNT(AUTO) 4.58 MIL/uL (3.63-4.92); WHITE BLOOD COUNT (AUTO) 8.1 K/uL (3.8-11.8)
[2017-08-15] MEDS: HYDROCORTISONE 1% CREAM 30 GM TUBE TP SCH ×2 (09:00→20:38)
[2017-08-15] MEDS: risperiDONE 1 MG TABLET PO SCH ×3 (09:00→20:38)
[2017-08-15] MEDS: NICOTINE 14 MG/24HR PATCH TD SCH (09:00)
[2017-08-15] MEDS: METOPROLOL TARTRATE 50 MG TABLET PO SCH ×2 (09:54→17:56)
[2017-08-15] MEDS: LACTOBACILLUS RHAMNOSUS GG 1 EACH CAPSULE PO SCH ×2 (09:54→20:37)
[2017-08-15] MEDS: SERTRALINE HCL 100 MG TABLET PO SCH (09:54)
[2017-08-15 12:09] VITALS: BP 129/71
[2017-08-15] MEDS: hydrOXYzine HCL 50 MG TABLET PO PRN (14:11)
[2017-08-15 15:15] VITALS: BP 134/70
[2017-08-15 15:38] VITALS: BP 125/65
--- NOTE | 2017-08-15 20:00 | NUR ---
RECEIVED PATIENT AWAKE IN BED. A/O X3. DENIES PAIN OR DISCOMFORT. PATIENT UPSET BECAUSE SHE WANTED TO GO HOME TODAY. VSS. NO RESP. DISTRESS NOTED. ON ISOLATION FOR MRSA NARES AND ESBL IN THE URINE. CALL LIGHT IN REACH. ALL NEEDS ATTENDED. WILL CONTINUE TO MONITOR.
[2017-08-15 20:06] VITALS: BP 113/51
[2017-08-15] MEDS: ATORVASTATIN 20 MG TABLET PO SCH (20:38)
[2017-08-15] MEDS: TRAZODONE 100 MG TABLET PO SCH (20:38)
[2017-08-15] MEDS: QUETIAPINE FUMARATE 25 MG TABLET PO SCH (22:33)
[2017-08-15] MEDS ORDERED: QUETIAPINE FUMARATE 25 MG TABLET ONE (22:46)
--- NOTE | 2017-08-16 05:22 | NUR ---
PATIENT ASLEEP IN BED. SLEPT WELL. SITTER AT BEDSIDE FOR SAFETY. CALL LIGHT IN REACH. ALL NEEDS ATTENDED. WILL CONTINUE TO MONITOR.
[2017-08-16] MEDS: ACYCLOVIR 400 MG TABLET PO SCH ×5 (06:14→20:32)
[2017-08-16] MEDS: PANTOPRAZOLE SODIUM 40 MG TABLET.DR PO SCH (06:14)
[2017-08-16 06:20] VITALS: BP 125/71
--- NOTE | 2017-08-16 08:00 | NUR ---
RECEIVED PATIENT AWAKE IN BED. A/O X3. DENIES PAIN OR DISCOMFORT. VSS. NO RESP. DISTRESS NOTED. ON ISOLATION FOR MRSA NARES AND ESBL IN THE URINE. CALL LIGHT IN REACH. ALL NEEDS ATTENDED. REMAINS ON 1:1 SITTER. WILL CONTINUE TO MONITOR FOR SAFETY AND NEEDS.
[2017-08-16 08:24] VITALS: BP 124/53
[2017-08-16] MEDS: LACTOBACILLUS RHAMNOSUS GG 1 EACH CAPSULE PO SCH ×2 (08:38→20:31)
[2017-08-16] MEDS: SERTRALINE HCL 100 MG TABLET PO SCH (08:40)
[2017-08-16] MEDS: METOPROLOL TARTRATE 50 MG TABLET PO SCH ×2 (08:40→17:02)
[2017-08-16] MEDS: QUETIAPINE FUMARATE 25 MG TABLET PO SCH ×2 (08:40→20:31)
[2017-08-16] MEDS: MUPIROCIN 2% OINT 22 GM TUBE NS SCH ×2 (08:41→20:32)
[2017-08-16] MEDS: HYDROCORTISONE 1% CREAM 30 GM TUBE TP SCH ×2 (08:48→20:33)
[2017-08-16] MEDS: NICOTINE 14 MG/24HR PATCH TD SCH (08:48)
[2017-08-16 11:54] VITALS: BP 126/65
[2017-08-16 16:10] VITALS: BP 133/55
--- NOTE | 2017-08-16 16:16 | NUR ---
PATIENT SLEEPING ON AND OFF, ATE 50% BREAKFAST AND LUNCH. DENIES SUICIDAL IDEATIONS.
[2017-08-16 19:00] VITALS: BP 134/59
--- NOTE | 2017-08-16 19:45 | NUR ---
RECEIVED SHIFT REPORT FROM PREVIOUS SHIFT NURSE. VISITED PATIENT AND PATIENT IN STABLE CONDITION, NO S/S OF DISTRESS. LAYING COMFORTABLY IN BED. APPEARS TO BE WITHDRAWN. WILL CONTINUE TO MONITOR THROUGHOUT SHIFT. 1:1 SITTER PRESENT. SAFETY AND COMFORT WILL BE PROVIDED THROUGHOUT SHIFT.
[2017-08-16] MEDS: ATORVASTATIN 20 MG TABLET PO SCH (20:31)
[2017-08-16] MEDS: TRAZODONE 100 MG TABLET PO SCH (20:32)
[2017-08-17] VITALS: BP 137/74
[2017-08-17 04:00] VITALS: BP 140/69
[2017-08-17] MEDS: ACYCLOVIR 400 MG TABLET PO SCH ×5 (05:30→20:13)
[2017-08-17] MEDS: PANTOPRAZOLE SODIUM 40 MG TABLET.DR PO SCH (05:31)
--- NOTE | 2017-08-17 06:25 | NUR ---
PATIENT SLEPT INTERMITTENTLY THROUGHOUT THE NIGHT BUT DID NOT COMPLAIN OF HAVING DIFFICULTY SLEEPING. 1 TO 1 SITTER PRESENT THROUGHOUT THE SHIFT. NO S/S OF DISTRESS. STABLE CONDITION. NO SUICIDAL IDEATIONS OR ATTEMPTS NOTED. PATIENT WAS CALM AND COOPERATIVE THROUGHOUT SHIFT. BED IN LOCKED/LOW POSITION WITH SIDE RAILS UP X2. ENSURED THERE WERE NO ITEMS IN THE ROOM THAT MAY BE A HAZARD/HARMFUL FOR THE PATIENT. SAFETY AND COMFORT PROVIDED.
--- NOTE | 2017-08-17 07:25 | NUR ---
RECEIVED REPORT FROM BROKE HANDLER NURSE, PATIENT IN BED AWAKE, UPSET ABOUT NOT BEING DISCHARGED YET. NO EVIDENCE OF PHYSICAL DISTRESS AT THIS TIME, BED IN LOW POSITION, SIDE RAILS UP X2, SITTER AT BEDSIDE.
[2017-08-17 08:21] VITALS: BP 133/84
[2017-08-17] MEDS: LACTOBACILLUS RHAMNOSUS GG 1 EACH CAPSULE PO SCH ×2 (08:25→20:13)
[2017-08-17] MEDS: QUETIAPINE FUMARATE 25 MG TABLET PO SCH ×2 (08:26→20:14)
[2017-08-17] MEDS: MUPIROCIN 2% OINT 22 GM TUBE NS SCH ×2 (08:26→20:14)
[2017-08-17] MEDS: SERTRALINE HCL 100 MG TABLET PO SCH (08:26)
[2017-08-17] MEDS: METOPROLOL TARTRATE 50 MG TABLET PO SCH ×2 (08:26→17:18)
[2017-08-17] MEDS: NICOTINE 14 MG/24HR PATCH TD SCH (08:27)
[2017-08-17] MEDS: HYDROCORTISONE 1% CREAM 30 GM TUBE TP SCH ×2 (08:28→20:15)
[2017-08-17 11:58] VITALS: BP 131/70
[2017-08-17 15:17] VITALS: BP 124/66
[2017-08-17] MEDS: TRAZODONE 100 MG TABLET PO SCH (20:14)
[2017-08-17] MEDS: ATORVASTATIN 20 MG TABLET PO SCH (20:14)
[2017-08-18] MEDS: ACYCLOVIR 400 MG TABLET PO SCH ×5 (06:00→20:01)
[2017-08-18] MEDS: PANTOPRAZOLE SODIUM 40 MG TABLET.DR PO SCH (07:00)
--- NOTE | 2017-08-18 07:25 | NUR ---
RECEIVED REPORT FORM MANAGEMENT DEVELOPER NURSE, PATIENT IN BED AWAKE. PATIENT APPEARS TO BE ANGRY AND CURSING ABOUT BEING LIED TO FOR HER DISCHARGE. STATES THAT THE DOCTOR TOLD HER THAT HER HOLD IS LIFTED.
[2017-08-18] MEDS: LACTOBACILLUS RHAMNOSUS GG 1 EACH CAPSULE PO SCH ×2 (09:00→20:00)
[2017-08-18] MEDS: NICOTINE 14 MG/24HR PATCH TD SCH (09:00)
[2017-08-18] MEDS: MUPIROCIN 2% OINT 22 GM TUBE NS SCH ×2 (09:00→20:01)
[2017-08-18] MEDS: HYDROCORTISONE 1% CREAM 30 GM TUBE TP SCH ×2 (09:00→20:02)
[2017-08-18] MEDS ORDERED: QUETIAPINE FUMARATE 25 MG TABLET PO SCH (09:00)
[2017-08-18] MEDS: METOPROLOL TARTRATE 50 MG TABLET PO SCH ×2 (09:00→17:08)
[2017-08-18] MEDS: SERTRALINE HCL 100 MG TABLET PO SCH (09:00)
[2017-08-18 11:21] VITALS: BP 123/63
[2017-08-18 15:36] VITALS: BP 151/61
--- NOTE | 2017-08-18 17:00 | NUR ---
PATIENTS BATHROOM SMELLED OF SMOKE, WHEN CONFRONTED PATIENT DENIED SMOKING IN THE BATHROOM. CHARGE NURSE AND RESIDENTIAL CARE OFFICER NOTIFIED OF THE SITUATION. ALL OF PATIENT'S ITEMS WERE DOCUMENTED & REMOVED FROM THE ROOM, AND CIGARETTES WERE FOUND IN PATIENT'S PANTS ALONG WITH A WALLET.
--- NOTE | 2017-08-18 18:50 | NUR ---
PATIENT IS YELLING OBSCENITIES VERY LOUD. PATIENT IS UPSET THAT A SECOND PACK OF CIGARETTES WAS FOUND UNDER HER MATTRESS. CURRENTLY IN BED WATCHING TV, SITTER AT BEDSIDE.
[2017-08-18 20:00] VITALS: BP 146/79
[2017-08-18] MEDS: ATORVASTATIN 20 MG TABLET PO SCH (20:00)
[2017-08-18] MEDS: TRAZODONE 100 MG TABLET PO SCH (20:01)
[2017-08-18] MEDS: QUETIAPINE FUMARATE 25 MG TABLET PO SCH (20:01)
--- NOTE | 2017-08-18 20:15 | NUR ---
PT REFUSED SCHEDULED ACYCLOVIR. PT STATED "I DON'T WANT TO TAKE IT BECAUSE I GET DIARRHEA" AND "I DON'T NEED IT I AM ALREADY HEALED, I HAVE NO INFECTION". PATIENT ALSO REFUSED ASSESSMENT OF S1 AREA.
[2017-08-18] MEDS: hydrOXYzine HCL 50 MG TABLET PO PRN (22:10)
[2017-08-19] MEDS: ACYCLOVIR 400 MG TABLET PO SCH ×7 (06:00→21:00)
[2017-08-19] MEDS: PANTOPRAZOLE SODIUM 40 MG TABLET.DR PO SCH (06:03)
--- NOTE | 2017-08-19 06:28 | NUR ---
PT SLEPT WELL, TOTAL OF 6 HRS SLEEP, IN NO ACUTE DISTRESS. PT HAS BEEN UPSET, UNCOOPERATIVE, REFUSED MEDICATION SCHEDULED THIS MORNING AND REFUSED TO HAVE VITAL SIGNS TAKEN. PT HAS BEEN WANTING TO BE DISCHARGED. PT EXPRESSED NO SUICIDAL IDEATION AT THIS TIME. SAFETY MEASURES IN PLACE, 1:1 SITTER PROVIDED. CALL LIGHT WITHIN REACH, BED ALARM ON. WILL CONTINUE TO MONITOR.
[2017-08-19 08:00] VITALS: BP 143/62
--- NOTE | 2017-08-19 08:10 | NUR ---
RECEIVED PATIENT ASLEEP. NOT IN APPARENT DISTRESS. NON-LABORED BREATHING. WITH 1:1 SITTER AT BEDSIDE. CALL LIGHT WITHIN REACH.
[2017-08-19] MEDS: LACTOBACILLUS RHAMNOSUS GG 1 EACH CAPSULE PO SCH ×2 (09:06→20:14)
[2017-08-19] MEDS: SERTRALINE HCL 100 MG TABLET PO SCH (09:06)
[2017-08-19] MEDS: QUETIAPINE FUMARATE 100 MG TABLET PO SCH ×2 (09:07→20:14)
[2017-08-19] MEDS: METOPROLOL TARTRATE 50 MG TABLET PO SCH ×2 (09:07→17:01)
[2017-08-19] MEDS: NICOTINE 14 MG/24HR PATCH TD SCH (09:13)
[2017-08-19] MEDS: HYDROCORTISONE 1% CREAM 30 GM TUBE TP SCH ×2 (09:13→20:16)
[2017-08-19] MEDS: MUPIROCIN 2% OINT 22 GM TUBE NS SCH ×2 (09:13→20:16)
--- NOTE | 2017-08-19 09:31 | NUR ---
TOLERATED BREAKFAST WELL. NO VERBALIZATION OF SUICIDAL IDEATION AT THIS TIME. PATIENT VERBALIZES OF WANTING TO GO HOME. NO OTHER COMPLAINTS OF PAIN/DISCOMFORT.
--- NOTE | 2017-08-19 10:13 | NUR ---
PATIENT REFUSED ACYCLOVIR. SAID SHE HAS BEEN HAVING DIARRHEA BECAUSE OF IT. DISCUSSED RISKS AND BENEFITS, PATIENT STILL REFUSES
[2017-08-19] MEDS ORDERED: LORAZEPAM 2 MG/1 ML VIAL IV ONE (11:15)
[2017-08-19] MEDS ORDERED: OLANZAPINE 10 MG VIAL IM ONE (11:15)
--- NOTE | 2017-08-19 11:15 | NUR ---
Patient very up set and cursing, using foul language towards staff. Patient throwing books and boxes of tissue over the wall. Informed Dr. Fernandez. Seen and examined by Dr. Fernandez. ordered 30 days hold. IM Zyprexa and Ativan given.
--- NOTE | 2017-08-19 11:30 | NUR ---
Patient found on bathroom cutting herself with broken mirror in left arm. With about 5 inches wound over left arm. Moderate bleeding, cleaned and covered with bandage. Informed Dr. Ojeda. Seen and examined by Dr. Ojeda. Will prepare for suturing. All belongings, books and other things removed from room.
[2017-08-19] MEDS ORDERED: LORAZEPAM 2 MG/1 ML VIAL IM ONE (12:00)
[2017-08-19] MEDS ORDERED: LIDOCAINE HCL 1% 20 ML VIAL IJ PRN (12:15)
--- NOTE | 2017-08-19 12:30 | NUR ---
Suturing done by Dr. Derrek Ojeda. Wound cleaned, Xylocaine 1% administered by Dr. Ojeda. Suturing completed and wound covered with Xeroform, gauze and mainor bandage. Tetanus vaccine still up to date good for 2 more years.
--- NOTE | 2017-08-19 15:34 | NUR ---
Incident report over intranet done.
[2017-08-19 17:04] VITALS: BP 106/60
--- NOTE | 2017-08-19 19:30 | NUR ---
RECEIVED PATIENT QUIETLY RESTING IN BED IN A POSITION, IN NO ACUTE DISTRESS. 1:1 SITTER PROVIDED FOR SAFETY.
[2017-08-19] MEDS: ATORVASTATIN 20 MG TABLET PO SCH (20:14)
[2017-08-19] MEDS: TRAZODONE 100 MG TABLET PO SCH (20:14)
--- NOTE | 2017-08-19 20:15 | NUR ---
PATIENT TOOK MEDICATION ORDERED/SCHEDULED EXCEPT ACYCLOVIR. EXPLAINED TO PATIENT THE BENEFITS OF CONTINUING MEDICATION. PT STATED "I ALREADY ENDED IT".
[2017-08-19 22:02] VITALS: BP 124/57
[2017-08-20 01:20] VITALS: BP 125/69
[2017-08-20] MEDS: ACYCLOVIR 400 MG TABLET PO SCH ×4 (06:00→14:00)
[2017-08-20] MEDS: PANTOPRAZOLE SODIUM 40 MG TABLET.DR PO SCH (06:59)
[2017-08-20] MEDS: MUPIROCIN 2% OINT 22 GM TUBE NS SCH (09:00)
[2017-08-20] MEDS: HYDROCORTISONE 1% CREAM 30 GM TUBE TP SCH (09:00)
[2017-08-20] MEDS: NICOTINE 14 MG/24HR PATCH TD SCH (09:00)
[2017-08-20] MEDS: LACTOBACILLUS RHAMNOSUS GG 1 EACH CAPSULE PO SCH (09:56)
[2017-08-20] MEDS: QUETIAPINE FUMARATE 100 MG TABLET PO SCH ×2 (09:57→16:28)
[2017-08-20] MEDS: METOPROLOL TARTRATE 50 MG TABLET PO SCH ×2 (09:57→16:32)
[2017-08-20] MEDS: SERTRALINE HCL 100 MG TABLET PO SCH (09:57)
[2017-08-20] MEDS ORDERED: QUET100T PO (12:12)
[2017-08-20] MEDS ORDERED: ACYC400T PO (12:12)
[2017-08-20 16:39] VITALS: BP 153/65
--- NOTE | 2017-08-20 18:08 | NUR ---
PT. REMAINS COMBATIVE ABUSIVE AND NON-COMPLIANT, FREQUENTLY SWEARING AT STAFF AND OCCASIONALLY THROWING THINGS. PT. TRANSFERRED TO [facility] FOR CONTINUED CARE. STATED TO RN EARLIER TODAY "I GUESS YOU PEOPLE DIDN'T TAKE ALL MY BELONGINGS CAUSE I HID THAT PIECE OF GLASS AND USE IT" {PT. WAS SMILING}
== END 2017-08-20 18:15 | DRG 690 ==
LOC: MED 15:32
PROVIDERS: ADMIT Internal Medicine; ATTEND Internal Medicine
PROC: 0JQH3ZZ Repair Left Lower Arm Subcutaneous Tissue and Fascia, Percutaneous Approach (ICD-10-PCS; principal; 2017-08-12)
DX: N39.0 Urinary tract infection, site not specified (principal); F33.3 Major depressive disorder, recurrent, severe with psychotic symptoms; B02.9 Zoster without complications; J44.9 Chronic obstructive pulmonary disease, unspecified; G62.9 Polyneuropathy, unspecified; E83.52 Hypercalcemia; H20.9 Unspecified iridocyclitis; B96.20 Unspecified Escherichia coli [E. coli] as the cause of diseases classified elsewhere; Z16.12 Extended spectrum beta lactamase (ESBL) resistance; K21.9 Gastro-esophageal reflux disease without esophagitis; Z90.49 Acquired absence of other specified parts of digestive tract; Z86.011 Personal history of benign neoplasm of the brain; F17.210 Nicotine dependence, cigarettes, uncomplicated; Z82.49 Family history of ischemic heart disease and other diseases of the circulatory system; Z82.0 Family history of epilepsy and other diseases of the nervous system; Z91.5 Personal history of self-harm; Z59.0 Homelessness; L80 Vitiligo; E78.5 Hyperlipidemia, unspecified; I10 Essential (primary) hypertension; Z91.14 Patient's other noncompliance with medication regimen; Z22.322 Carrier or suspected carrier of Methicillin resistant Staphylococcus aureus; S51.812A Laceration without foreign body of left forearm, initial encounter; X78.0XXA Intentional self-harm by sharp glass, initial encounter; Y92.231 Patient bathroom in hospital as the place of occurrence of the external cause; R51 Headache; R90.89 Other abnormal findings on diagnostic imaging of central nervous system; F15.10 Other stimulant abuse, uncomplicated
CPT/HCPCS: 36415; 83735; 84100; 85025; A4663; J2060; J2185; J2358; J3490; Q0163

== ENCOUNTER 2017-08-20 18:54 | Inpatient (IN) | payer MEDICARE, OTHER ==
[~2017-08-20] VITALS: Ht 160 cm; Wt 53.5 kg
--- NOTE | 2017-08-20 18:15 | NUR ---
Patient arrived on unit Awake , alert and oriented. V/S WNL. No pain reported when asked. Respirations are unlabored. Skin is warm, dry ,pink and intact. Patient has a laceration on left forearm approx 6 inches long, with 15 stitches. Site is clean & dry and open to air. Patient has a 1:1 sitter for safety per suicidal ideation and attempt. Patient is currently calm and compliant. Patient is ambulatory with stable gate. Patient is Continent, and independent with ADLs. Patient is able to verbalize all needs and complaints. All needs met at this time. Will continue to monitor
[~2017-08-20 18:54] MED LIST changes: +ACET-2154 PO; +ACYC400T PO; -ALBU18HF2 IH; +ALBU2.5V38 NEB; +ATOR20TA PO; -BUTA1CAP47 PO; +DIPH50CA37 PO; +HYDR453.3 TP; -IBUP-1953 PO; +LACT100C2 PO; +LORA1TAB PO; +MAG-55 PO; +MERO500V IV; +NICO1PAT25 TD; +QUET100T PO; +RISP1TAB7 PO; +SERT25TA PO; +TEMA15CA PO; +TRAZ-147 PO
--- NOTE | 2017-08-20 19:23 | NUR ---
Patients belongings are remaining secured on 2nd floor med-surge unit. Will endorse to on coming shift
[2017-08-20] MEDS ORDERED: LORAZEPAM 1 MG TABLET PO PRN (20:00)
[2017-08-20] MEDS ORDERED: ACETAMINOPHEN 325 MG TABLET PO PRN (20:00)
[2017-08-20] MEDS ORDERED: MAG HYDROX/AL HYDROX/SIMETH 30 ML LIQUID UDC PO PRN (20:00)
[2017-08-20] MEDS ORDERED: MAGNESIUM HYDROXIDE 30 ML LIQUID UDC PO PRN (20:00)
[2017-08-20] MEDS ORDERED: TEMAZEPAM 7.5 MG CAPSULE PO PRN (20:00)
[2017-08-20 20:43] VITALS: BP 125/67
[2017-08-20] MEDS ORDERED: TEMAZEPAM 7.5 MG CAPSULE ONE (21:05)
[2017-08-20] MEDS ORDERED: ACETAMINOPHEN 325 MG TABLET ONE (22:40)
--- NOTE | 2017-08-21 00:35 | NUR ---
PATIENT TRANSFERRED FROM THE 2ND FLOOR VIA WHEEL CHAIR, KRISTINA CHOUDHARY GAVE REPORT TO AM SHIFT ANN-MARIE FERGUSON. UPON ASSESSMENT PATIENT REFUSED TO ANSWER ANY QUESTIONS, BECAME EASILY AGITATED, ANGRY, IRRITABLE, AND LABILE TOWARDS STAFF. PATIENT WANTS INSTANT GRATIFICATION. NO CONTRABAND PRESENT ALL BELONGINGS REMAIN ON 2ND FLOOR, KRISTINA CHOUDHARY HAS ALL BELONGING ON 2ND FLOOR. PATIENT HAD RECENT ATTEMPT OF CUTTING WRIST WITH A MIRROR RECEIVED 15 STITCHES TO LEFT WRIST. PATIENT HAS 1:1 SITTER WITHIN ARMS REACH DUE TO RECENT ATTEMPT/SAFETY. SKIN REVEALS LEFT STITCHES TO WRIST, BILATERAL RASHES TO UPPER LOWER ARMS. PATIENT NOT WANTING TO ANSWER ANY QUESTIONS ON RECENT ATTEMPT, HOWEVER REFUSES SI/AH/VH WILL CONTINUE TO MONITOR CHANGE OF BEHAVIOR AND REDIRECT NEEDED. BED IN LOWEST POSITION, BED LOCKED, AND BED ALARM ON WHILE IN BED.
[2017-08-21 07:30] VITALS: BP 134/57
[2017-08-21] MEDS: NICOTINE 21 MG/24HR PATCH TD SCH (10:30)
[2017-08-21 16:34] VITALS: BP 136/75
--- NOTE | 2017-08-21 16:38 | NUR ---
WHEN ASSESSING PT'S STITCHES TO LEFT WRIST/FOREARM, PT STATED SHE IS NOT SUICIDAL, AND DID THAT PART OF MANIPULATING STAFF. "THE NURSES WANTED TO CONTROL ME, SO I SHOWED THEM I CAN'T BE CONTROLLED." PT ANGRY AND IRRITABLE AT TIMES, ESPECIALLY WHEN SHE DOES NOT GET HER WAY, OR IF SHE DOES NOT HAVE HER REQUESTS PERFORMED IMMEDIATELY. POOR IMPULSE CONTROL NOTED. PT IS AOX4. CAN BE QUITE VERBALLY ABUSIVE TO STAFF. 1:1 SITTER REMAINS WITH PT WITHIN ARMS LENGTH AT ALL TIMES. PT REQUESTS AT THIS TIME TO CHANGE DOCTORS BECAUSE HER DR, DR. COLVIN, IS "OLD AND SENILE." WILL SPEAK TO THE DR OR ENDORSE TO NEXT SHIFT. ALL BELONGINGS FROM 2ND FLOOR HAS BEEN BROUGHT TO UNIT AND INVENTORIED PER PT REQUEST.
[2017-08-21] MEDS ORDERED: diphenhydrAMINE 50 MG CAPSULE PO PRN (19:00)
[2017-08-21] MEDS ORDERED: ALBUTEROL SULFATE 2.5 MG/3 ML NEBU NEB PRN (19:00)
[2017-08-21] MEDS ORDERED: HYDROCORTISONE 2.5% CREAM 20 GM TUBE TOP PRN (19:00)
[2017-08-21 20:51] VITALS: BP 137/79
[2017-08-21] MEDS: ACYCLOVIR 400 MG TABLET PO SCH (21:00)
[2017-08-21] MEDS: ATORVASTATIN 20 MG TABLET PO SCH (21:29)
[2017-08-21] MEDS: TRAZODONE 100 MG TABLET PO SCH (21:29)
[2017-08-21] MEDS: QUETIAPINE FUMARATE 100 MG TABLET PO SCH (21:30)
[2017-08-21] MEDS ORDERED: TRAZODONE 100 MG TABLET ONE (21:43)
[2017-08-21] MEDS ORDERED: QUETIAPINE FUMARATE 100 MG TABLET ONE (21:43)
--- NOTE | 2017-08-21 22:26 | NUR ---
PATIENT RECEIVED IN ROOM AWAKE, REMAINS WITH A 1:1 SITTER FOR SAFETY. PATIENT IS LABILE TOWARDS STAFF. PATIENT WANTS INSTANT GRATIFICATION, EASILY IRRITABLE, EASILY AGITATED, DEMANDING, EASILY ANGRY. POOR IMPULSE CONTROL, POOR JUDGEMENT. PATIENT DENIES SI/AH/VH WILL CONITNUE TO MONITOR CHANGE OF BEHAVIOR AND REDIRECT NEEDED. PATIENT COMPLAINT WITH MEDICATION, REFUSED ZOVIRAX 800MG " THIS GIVES ME DIARRHEA." THROWING MEDICATION ON THE NIGHT STAND. BED IN LOWEST POSITION, BED LOCKED, AND BED ALARM ON WHILE IN BED.
[2017-08-22] MEDS: ACYCLOVIR 400 MG TABLET PO SCH ×2 (06:00→09:36)
[2017-08-22 07:30] VITALS: BP 159/81
[2017-08-22] MEDS: NICOTINE 21 MG/24HR PATCH TD SCH (09:00)
[2017-08-22] MEDS: NICOTINE 14 MG/24HR PATCH TD SCH (09:00)
[2017-08-22] MEDS: PANTOPRAZOLE SODIUM 40 MG TABLET.DR PO SCH (09:20)
[2017-08-22] MEDS: METOPROLOL TARTRATE 50 MG TABLET PO SCH ×2 (09:21→20:16)
[2017-08-22] MEDS: AMLODIPINE 10 MG TABLET PO SCH (09:21)
[2017-08-22] MEDS: SERTRALINE HCL 100 MG TABLET PO SCH (09:22)
[2017-08-22] MEDS: QUETIAPINE FUMARATE 100 MG TABLET PO SCH (09:22)
[2017-08-22] MEDS: LOSARTAN POTASSIUM 50 MG TABLET PO SCH (09:22)
[2017-08-22] MEDS ORDERED: hydrALAZINE HCL 25 MG TABLET PO PRN (10:45)
[2017-08-22 17:00] VITALS: BP 111/66
[2017-08-22 20:07] VITALS: BP 115/65
[2017-08-22] MEDS: ATORVASTATIN 20 MG TABLET PO SCH (20:12)
[2017-08-22] MEDS: TRAZODONE 100 MG TABLET PO SCH (20:15)
[2017-08-22] MEDS: QUETIAPINE FUMARATE 200 MG TABLET PO SCH (20:15)
--- NOTE | 2017-08-23 07:02 | NUR ---
REFUSED LAB DRAW THIS AM.
[2017-08-23 07:30] VITALS: BP 121/59
[2017-08-23] MEDS: METOPROLOL TARTRATE 50 MG TABLET PO SCH ×2 (08:47→20:43)
[2017-08-23] MEDS: LOSARTAN POTASSIUM 50 MG TABLET PO SCH (08:47)
[2017-08-23] MEDS: PANTOPRAZOLE SODIUM 40 MG TABLET.DR PO SCH (08:47)
[2017-08-23] MEDS: NICOTINE 14 MG/24HR PATCH TD SCH (08:48)
[2017-08-23] MEDS: AMLODIPINE 10 MG TABLET PO SCH (08:48)
[2017-08-23] MEDS: NICOTINE 21 MG/24HR PATCH TD SCH (08:48)
[2017-08-23] MEDS: SERTRALINE HCL 100 MG TABLET PO SCH (08:48)
--- NOTE | 2017-08-23 09:00 | NUR ---
Pt was handed morning medication, pt motioned putting medication in mouth but dropped meds in blanket. I witnessed this and handed them back to her. I then handed her the rest of her medication. she then cheeked the same med she drop which was the 200mg seroquel. Then realized that I caught her she spit it out and stated " I am not taking that, you people are trying to sedate me!" Charge nurse notified.
[2017-08-23] MEDS: QUETIAPINE FUMARATE 200 MG TABLET PO SCH ×2 (10:00→21:00)
[2017-08-23 15:07] VITALS: BP 109/69
[2017-08-23] MEDS: ATORVASTATIN 20 MG TABLET PO SCH (20:21)
[2017-08-23 20:37] VITALS: BP_SYST 104; BP_SYST 98; BP_DIAS 55; BP_DIAS 61
[2017-08-23] MEDS: TRAZODONE 100 MG TABLET PO SCH (21:00)
--- NOTE | 2017-08-23 22:00 | NUR ---
received to care, lying in bed, 1;1 sitter at bedside, for safety. pleasant upon approach, but remains isolative, and guarded. b/p initially was 98/51, hr 67. she was given fluids and saltine crackers. by 2129, her b/p went up to 104/62, so her medications were held. as of 2199, she appears to be asleep. no distress noted. will continue to monitor closely.
--- NOTE | 2017-08-24 06:00 | NUR ---
slept 4.5 hours, total. sitter remains at side, for safety.
[2017-08-24 08:00] VITALS: BP 124/62
--- NOTE | 2017-08-24 08:52 | NUR ---
Discharge Planning Note: MARYLIN and Marce from [facility] [place] [address]; ] came to assess patient on 08/22 and stated that they can accept her at their facility. Patient stated that she does not want to go to any facility. SW asked patient again on 08/23 if she would like placement at a facility. Patient again refused placement and stated that she wants to return to her car.
[2017-08-24] MEDS: SERTRALINE HCL 100 MG TABLET PO SCH (08:57)
[2017-08-24] MEDS: PANTOPRAZOLE SODIUM 40 MG TABLET.DR PO SCH (08:57)
[2017-08-24] MEDS: AMLODIPINE 10 MG TABLET PO SCH (08:57)
[2017-08-24] MEDS: METOPROLOL TARTRATE 50 MG TABLET PO SCH (08:58)
[2017-08-24] MEDS: NICOTINE 14 MG/24HR PATCH TD SCH (09:00)
[2017-08-24] MEDS: QUETIAPINE FUMARATE 200 MG TABLET PO SCH (09:00)
[2017-08-24] MEDS: NICOTINE 21 MG/24HR PATCH TD SCH (09:00)
[2017-08-24 10:42] VITALS: BP 127/80
[2017-08-24] MEDS: LOSARTAN POTASSIUM 50 MG TABLET PO SCH (10:42)
--- NOTE | 2017-08-24 11:03 | NUR ---
DC Note: Patient will be discharged to [facility] [[address] [place] [address]; ] via taxi at 1pm. Patient is going to [facility] to picking machine operator helper her car. SOFIYA spoke with security shift manager Ranjith at [facility] who confirmed that the patient's vehicle is still in their parking lot. SOFIYA offered patient placement at [facility] [[address] [place] [address]; ]. However, patient is refusing placement and is choosing to return to her car. Patient stated that she has money in her bank account and plans to stay in a motel in [place], [place]. Patient stated she will follow up with her regular physician Dr. Rufino Sandoval (Security Patrol Driver) [[address] [place] [address]; ]. ]. Patient was also provided a list of referrals for outpatient psychiatrists including Dr. Fernandez [[phone]], Dr. Milligan [[phone]], and Dr. Perez [[phone]]. Patient was provided with additional outpatient mental health resources to [facility] , Mara Heck , and the National Suicide Prevention Lifeline . SW also encouraged patient to present at [facility] [[address] [place] [address]; [phone]] on Wednesday 08/29 at 9am for intake screening. Patient was provided a brief substance abuse intervention. Patient was provided outpatient substance abuse referrals to [facility] [ ] and [facility] [ ].
[2017-08-24] MEDS ORDERED: NEOMY/BACITRAC/POLYMI OINT 28.35 GM TUBE TOP SCH (13:00)
[2017-08-24] MEDS ORDERED: CEPHALEXIN MONOHYDRATE 500 MG CAPSULE PO SCH (14:00)
--- NOTE | 2017-08-24 14:20 | NUR ---
1300 patient will be discharged today via taxi to [facility] where patient park her car in hospital parking area. Discharged instruction given to the patient regarding medications to continue upon discharge from hospital -patient verbalized understanding. Prescriptions both medical and psychiatric given to patient and instructed to filled to her pharmacy she iis using.Also, manager social give list of psychiatric referrals to patient. 1415 Patient went to [facility] parking to get her car via taxi, patient alert and ox3. Denies SI/HI, no hallucinations/ no delusion noted.
== END 2017-08-24 14:15 | disposition home or self-care (01) | DRG 885 ==
LOC: GPS 18:54
PROVIDERS: ADMIT Psychiatry & Neurology Psychiatry; ATTEND Internal Medicine
DX: F25.9 Schizoaffective disorder, unspecified (principal); J44.9 Chronic obstructive pulmonary disease, unspecified; G62.9 Polyneuropathy, unspecified; N39.0 Urinary tract infection, site not specified; E78.5 Hyperlipidemia, unspecified; F17.210 Nicotine dependence, cigarettes, uncomplicated; I10 Essential (primary) hypertension; K21.9 Gastro-esophageal reflux disease without esophagitis; Z91.5 Personal history of self-harm; R51 Headache; L80 Vitiligo; F15.10 Other stimulant abuse, uncomplicated; H20.10 Chronic iridocyclitis, unspecified eye; Z59.0 Homelessness; Z86.011 Personal history of benign neoplasm of the brain; Z86.14 Personal history of Methicillin resistant Staphylococcus aureus infection; Z86.19 Personal history of other infectious and parasitic diseases; R21 Rash and other nonspecific skin eruption; M06.9 Rheumatoid arthritis, unspecified
CPT/HCPCS: Q0163